=== PATIENT | female | born 1945 | race Caucasian/White ===

== ENCOUNTER 2020-05-17 14:14 | Outpatient (CLI) | payer MEDICARE ==
--- NOTE | 2020-05-17 14:47 | RAD ---
RIGHT CLAVICLE TWO VIEWS: 05/17/20 HISTORY: Swollen are of medial right clavicle x1 week. There is no signs of fracture. There is some minimal arthritic changes at the sternoclavicular joint level. No bony destructive change. 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 POS: CORNELIUS
== END 2020-05-17 14:15 | disposition home or self-care (01) ==
LOC: BICRAD 14:14
PROVIDERS: ATTEND Family Medicine
DX: M89.311 Hypertrophy of bone, right shoulder (principal); M19.011 Primary osteoarthritis, right shoulder

== ENCOUNTER 2022-11-24 08:50 | Outpatient (CLI) | payer MEDICARE | END 2022-11-24 08:51 | disposition home or self-care (01) | LOC: BICMAMMO 08:50 | PROVIDERS: ATTEND Family Medicine Sports Medicine | DX: Z13.820 Encounter for screening for osteoporosis (principal); M85.851 Other specified disorders of bone density and structure, right thigh; M85.852 Other specified disorders of bone density and structure, left thigh; Z78.0 Asymptomatic menopausal state | CPT/HCPCS: 77080 ==

== ENCOUNTER 2025-02-08 15:04 | Outpatient (CLI) | payer MEDICARE | END 2025-02-08 15:05 | disposition home or self-care (01) | LOC: BICMAMMO 15:04 | PROVIDERS: ATTEND Family Medicine Sports Medicine | DX: Z78.0 Asymptomatic menopausal state (principal); M85.851 Other specified disorders of bone density and structure, right thigh; M85.852 Other specified disorders of bone density and structure, left thigh | CPT/HCPCS: 77080 ==